=== PATIENT | male | born 1990 | race Caucasian/White ===

== ENCOUNTER 2017-03-30 20:36 | Inpatient (IN) | payer OTHER ==
[2017-03-30] MEDS ORDERED: NORMAL SALINE 1000 ML 1,000 ML IV ONE (23:13)
--- NOTE | 2017-03-30 23:18 | ER Document Report ---
ED General - General Chief Complaint: Muscle cramps, heat exposure Stated Complaint: POSSIBLE MUSCLE CRAMPS Time Seen by Provider: 03/30/17 23:02 Notes: 36 year male presents with generalized muscle cramping guarding extremities and abdominal muscles on the setting of dehydration. Constant and worsening. 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 No dark urine no low back pain no loss of consciousness. TRAVEL OUTSIDE OF THE [place] IN LAST 30 DAYS: No - Related Data Allergies/Adverse Reactions: No Known Allergies Allergy (Verified 01/23/16 17:41) Past Medical History - General Information source: Patient - Social History Smoking Status: Current Every Day Smoker Family History: Reviewed & Not Pertinent Renal/ Medical History: Denies: Hx Peritoneal Dialysis Psychiatric Medical History: Reports: Hx Attention Deficit Hyperactivity Disorder, Hx Bipolar Disorder Past Surgical History: Reports: Hx Tonsillectomy - Immunizations Immunizations up to date: Yes Hx Diphtheria, Pertussis, Tetanus Vaccination: No Review of Systems - Review of Systems Notes: REVIEW OF SYSTEMS GEN: Denies fever, chills, weight loss ENT: Denies sore throat, nasal discharge, ear pain EYES: Denies blurry vision, eye pain, discharge CV: Denies chest pain, palpitations, edema RESP: Denies cough, shortness of breath, wheezing GI: Denies abdominal pain, nausea, vomiting, diarrhea MSK: Pain, SKIN: Denies rash, skin lesions LYMPH: Denies swollen glands/lymph nodes NEURO: Denies headache, focal weakness or numbness, dizziness PSYCH: Denies depression, suicidal or homicidal ideation PHYSICAL EXAMINATION General: No acute distress, well-nourished Head: Atraumatic, normocephalic ENT: Mouth normal, oropharynx moist, no exudates or tonsillar enlargement Eyes: Conjunctiva normal, pupils equal, lids normal Neck: No JVD, supple, no guarding CVS: Normal rate, regular rhythm, no murmurs Resp: No resp distress, equal and normal breath sounds bilaterally GI: Nondistended, soft, no tenderness to palpation, no rebound or guarding Ext: No deformities, no edema, normal range of motion in upper and lower ext Back: No CVA or midline TTP Skin: No rash, warm Lymphatic: No lymphadeopathy noted Neuro: Awake, alert. Face symmetric. GCS 15. Physical Exam - Vital signs Vitals: Temp Pulse Resp BP Pulse Ox 97.6 F 91 16 127/93 H 99 03/30/17 20:51 03/30/17 20:51 03/30/17 20:51 03/30/17 20:51 03/30/17 20:51 Course - Re-evaluation Re-evalutation: 03/30/17 23:17 Muscle cramps without tenderness, and obvious dehydration in the setting of working in the heat. Differential includes he cramps electrode abnormalities dehydration and/or rhabdomyolysis. Will get labs and hydrate patient. 03/31/17 00:38 Patient is receiving fluids and feeling slightly better. His laboratory testing shows multiple abnormalities including likely acute kidney injury with a creatinine of 2.25 mildly elevated potassium, hyperkalemia and hemoconcentration on his CBC was elevated white count and hemoglobin. I will give him medications for hyperkalemia, see medication list, finish his current IV fluid bolus and put him on maintenance fluids. He will be admitted to the hospital. 03/31/17 00:[address] Jiang who admitted the patient. Agree with treatment plan as outlined. - Vital Signs Vital signs: Temp Pulse Resp BP Pulse Ox 97.6 F 91 16 127/93 H 99 03/30/17 20:51 03/30/17 20:51 03/30/17 20:51 03/30/17 20:51 03/30/17 20:51 - Laboratory Result Diagrams: 03/30/17 23:25 03/30/17 23:25 Laboratory results interpreted by me: 03/30/17 03/30/17 23:25 23:25 WBC 23.7 H RBC 5.60 H Hgb 17.6 H Seg Neuts % (Manual) 88 H Lymphocytes % (Manual) 7 L Abs Neuts (Manual) 20.9 H Potassium 5.4 H Chloride 96 L Carbon Dioxide 21 L Anion Gap 21 H Creatinine 2.26 H Est GFR ( Amer) 42 L Est GFR (Non-Af Amer) 35 L Calcium 12.2 H* Creatine Kinase 564 H - EKG Interpretation by Me EKG shows normal: Sinus rhythm - Little change in morphology of the T waves compared to prior with no definite peaking or hyper acuity. Discharge - Discharge Clinical Impression: Dehydration, Acute kidney injury Condition: Fair Disposition: ADMITTED INPATIENT Admitting Provider: Hospitalist Unit Admitted: Telemetry
[2017-03-30 23:44] LABS: HEMATOCRIT 50.1 % (37.9-51.0); HEMOGLOBIN 17.6 g/dL (13.5-17.0); HGB HCT DIFFERENCE 2.7; MEAN CORPUSCULAR HEMOGLOBIN 31.4 pg (27.0-33.4); MEAN CORPUSCULAR HGB CONC 35.1 g/dL (32.0-36.0); MEAN CORPUSCULAR VOLUME 90 fl (80-97); RED CELL DISTRIBUTION WIDTH 12.9 % (11.5-14.0); WHITE BLOOD COUNT 23.7 10^3/uL (4.0-10.5)
[2017-03-30 23:52] LABS: BLOOD UREA NITROGEN 19 mg/dL (7-20); CARBON DIOXIDE 21 mmol/L (22-30); CREATINE KINASE 564 U/L (55-170); CREATININE RESULT 2.26 mg/dL (0.52-1.25); GLUCOSE 100 mg/dL (75-110); POTASSIUM 5.4 mmol/L (3.6-5.0)
[2017-03-30 23:59] LABS: BASOPHILS % (MANUAL) 0 % (0-2); EOSINOPHILS % (MANUAL) 0 % (0-6); LYMPHOCYTES % (MANUAL) 7 % (13-45); TOTAL CELLS COUNTED 100
[2017-03-31 00:02] LABS: RBC MORPHOLOGY COMMENT NORMO-CYTIC/CHROMIC
[2017-03-31 00:11] LABS: CHLORIDE 96 mmol/L (98-107); SODIUM 137.6 mmol/L (137-145)
[2017-03-31] MEDS ORDERED: RINGERS SOLUTION,LACTATED 1,000 ML IV ONE (00:13)
[2017-03-31 00:14] LABS: ANION GAP 21 (5-19)
[2017-03-31 00:17] LABS: CALCIUM 12.2 mg/dL (8.4-10.2)
[2017-03-31] MEDS ORDERED: ALBUTEROL SULFATE 0.083% NEB 2.5 MG/3 ML AMPUL NEB ONE (00:35)
[2017-03-31] MEDS ORDERED: INSULIN REG, HUMAN 100 UNIT/ML 3 ML VIAL (PYX) IV ONE (00:35)
[2017-03-31] MEDS ORDERED: SODIUM BICARBONATE 4.2% INJ (2.4 MEQ/5 ML) VIAL INJ ONE (00:35)
[2017-03-31] MEDS ORDERED: DEXTROSE 50%-WATER 25 GM/50 ML DISP.SYRIN IV ONE (00:35)
[2017-03-31] MEDS ORDERED: DEXTROSE 5%-1/2 NORMAL SALINE 1,000 ML IV ONE (00:36)
[2017-03-31] MEDS ORDERED: IPRATROPIUM/ALBUTEROL 0.5-2.5 MG/3 ML AMPUL NEB PRN (00:57)
[2017-03-31] MEDS ORDERED: PROMETHAZINE HCL 25 MG TABLET PO PRN (00:57)
[2017-03-31] MEDS ORDERED: NORMAL SALINE 1000 ML 1,000 ML IV SCH (01:00)
[2017-03-31] MEDS ORDERED: SODIUM BICARBONATE 8.4% INJ 50 MEQ/50 ML DISP.SYRIN ONE (01:10)
[2017-03-31] MEDS ORDERED: SODIUM BICARBONATE 8.4% INJ 50 MEQ/50 ML DISP.SYRIN IV ONE (01:11)
[2017-03-31 01:32] LABS: ALANINE AMINOTRANSFERASE 94 U/L (21-72); ALKALINE PHOSPHATASE 94 U/L (38-126); ASPARTATE AMINO TRANSFERASE 52 U/L (17-59); BILIRUBIN,DIRECT 0.7 mg/dL (0.0-0.4); BILIRUBIN,TOTAL 2.3 mg/dL (0.2-1.3); MAGNESIUM 2.5 mg/dL (1.6-2.3); PHOSPHORUS 5.1 mg/dL (2.5-4.5); TOTAL PROTEIN 10.4 g/dL (6.3-8.2)
[2017-03-31 01:54] LABS: ALBUMIN 6.3 g/dL (3.5-5.0)
[2017-03-31] MEDS: ACETAMINOPHEN 325 MG TABLET PO PRN (02:46)
[2017-03-31 02:54] LABS: URINE BARBITURATES SCREEN NEGATIVE; URINE METHADONE SCREEN NEGATIVE; URINE OPIATES LOW NEGATIVE; URINE PHENCYCLIDINE SCREEN NEGATIVE
--- NOTE | 2017-03-31 04:32 | PDOC H&P ---
History of Present Illness Admission Date/PCP: 03/31/17 00:57 Patient complains of: Diffuse muscle pain History of Present Illness: PRAVEEN NICHOLS is a 26 year old male without significant past medical history is been in his usual state of health until 4 hours prior to presentation complaining of headache nausea vomiting of gastric content, diffuse muscle pain and oliguria. 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 Denies previous episode, fever photophobia or neck rigidity. In the emergency room he found to have leukocytosis, severe dehydration, acute renal failure, hyperkalemia, hypercalcemia and rhabdomyolysis he is referred to the hospitalist for admission. Patient denies any prescribed or [id number] medication use. Past Medical History Medical History: None Psychiatric Medical History: Reports: Attention Deficit Hyperactivity Disorder, Bipolar Disorder Past Surgical History Past Surgical History: Reports: Tonsillectomy Social History Information Source: Patient Smoking Status: Former Smoker Frequency of Alcohol Use: None Hx Recreational Drug Use: Yes Drugs: Marijuana Hx Prescription Drug Abuse: No - Advance Directive Resuscitation Status: Full Code Family History Family History: Hypertension Parental Family History Reviewed: Yes Children Family History Reviewed: Yes Sibling(s) Family History Reviewed.: Yes Medication/Allergy Home Medications: Cyclobenzaprine HCl [Flexeril 10 mg Tablet] 10 mg PO TIDP PRN #15 tab 12/28/15 Docusate Sodium [Colace 100 mg Capsule] 100 mg PO DAILY #30 capsule 12/28/15 Hydrocortisone Acetate [Hemmorex-Hc] 25 mg RC BID #24 supp.rect 12/28/15 Oxycodone HCl/Acetaminophen [Percocet 5-325 mg Tablet] 1 - 2 tab PO Q4H PRN #15 tablet 01/23/16 Allergies/Adverse Reactions: No Known Allergies Allergy (Verified 01/23/16 17:41) Review of Systems Constitutional: ABSENT: chills, fever(s), headache(s), weight gain, weight loss Eyes: ABSENT: visual disturbances Ears: ABSENT: hearing changes Cardiovascular: ABSENT: chest pain, dyspnea on exertion, edema, orthropnea, palpitations Respiratory: ABSENT: cough, hemoptysis Gastrointestinal: ABSENT: abdominal pain, constipation, diarrhea, hematemesis, hematochezia, nausea, vomiting Genitourinary: ABSENT: dysuria, hematuria Musculoskeletal: ABSENT: joint swelling Integumentary: ABSENT: rash, wounds Neurological: ABSENT: abnormal gait, abnormal speech, confusion, dizziness, focal weakness, syncope Psychiatric: ABSENT: anxiety, depression, homidical ideation, suicidal ideation Endocrine: ABSENT: cold intolerance, heat intolerance, polydipsia, polyuria Hematologic/Lymphatic: ABSENT: easy bleeding, easy bruising Physical Exam Vital Signs: Temp Pulse Resp BP Pulse Ox 97.6 F 91 16 127/93 H 99 03/30/17 20:51 03/30/17 20:51 03/30/17 20:51 03/30/17 20:51 03/30/17 20:51 General appearance: PRESENT: no acute distress, well-developed, well-nourished, other - Sunburn Head exam: PRESENT: atraumatic, normocephalic Eye exam: PRESENT: conjunctiva pink, EOMI, PERRLA. ABSENT: scleral icterus Ear exam: PRESENT: normal external ear exam Mouth exam: PRESENT: moist, tongue midline Neck exam: ABSENT: carotid bruit, JVD, lymphadenopathy, thyromegaly Respiratory exam: PRESENT: clear to auscultation florencia. ABSENT: rales, rhonchi, wheezes Cardiovascular exam: PRESENT: RRR. ABSENT: diastolic murmur, rubs, systolic murmur Pulses: PRESENT: normal dorsalis pedis pul Vascular exam: PRESENT: normal capillary refill GI/Abdominal exam: PRESENT: normal bowel sounds, soft. ABSENT: distended, guarding, mass, organolmegaly, rebound, tenderness Rectal exam: PRESENT: deferred Extremities exam: PRESENT: full ROM. ABSENT: calf tenderness, clubbing, pedal edema Neurological exam: PRESENT: alert, awake, oriented to person, oriented to place , oriented to time, oriented to situation, CN II-XII grossly intact. ABSENT: motor sensory deficit Psychiatric exam: PRESENT: appropriate affect, normal mood. ABSENT: homicidal ideation, suicidal ideation Skin exam: PRESENT: dry, intact, warm. ABSENT: cyanosis, rash Assessment & Plan - Diagnosis (1) Acute kidney injury Is this a current diagnosis for this admission?: YesPlan: Secondary to prolonged heat exposure with suboptimal fluid intake, dehydration. And rhabdomyolysis. Follow-up chemistry and total CK avoiding nephrotoxic meds and doses UA pending (2) Leukocytosis Is this a current diagnosis for this admission?: YesPlan: Likely demargination secondary to heat exhaustion as he gives no focal complaints of pain and inflammation. Reevaluate CBC (3) Hyperkalemia Is this a current diagnosis for this admission?: YesPlan: Secondary to rhabdomyolysis IV fluid hydration and reevaluation (4) Hypercalcemia Is this a current diagnosis for this admission?: YesPlan: Secondary to severe dehydration, IV fluid challenge and reevaluation of chemistry (5) Dehydration Is this a current diagnosis for this admission?: YesPlan: IV fluid challenge and education - Time Time Spent: 30 to 50 Minutes - Inpatient Certification Medical Necessity: Need Close Monitoring Due to Risk of Patient Decompensation
[2017-03-31 05:10] LABS: ANION GAP 16 (5-19); BLOOD UREA NITROGEN 17 mg/dL (7-20); CALCIUM 10.3 mg/dL (8.4-10.2); CARBON DIOXIDE 25 mmol/L (22-30); CHLORIDE 100 mmol/L (98-107); CREATININE RESULT 1.26 mg/dL (0.52-1.25); GLUCOSE 98 mg/dL (75-110); SODIUM 140.5 mmol/L (137-145)
[2017-03-31] MEDS: HEPARIN SOD (PORCINE) 5,000 UNIT/ML 1 ML SYRINGE SUBCUT SCH ×3 (05:18→22:17)
[2017-03-31 05:21] LABS: POTASSIUM 3.8 mmol/L (3.6-5.0)
--- NOTE | 2017-03-31 07:50 | EKG REPORT ---
SEVERITY:- BORDERLINE ECG - SINUS RHYTHM NONSPECIFIC ST-T CHANGES- INFERIOR LEADS : Confirmed by: Gareth Grubbs MD 31-Mar-2017 07:50:07
[2017-03-31] MEDS: DOCUSATE SODIUM 100 MG CAPSULE PO SCH ×2 (10:08→18:16)
[2017-03-31 11:31] LABS: ANION GAP 15 (5-19); BLOOD UREA NITROGEN 16 mg/dL (7-20); CALCIUM 9.6 mg/dL (8.4-10.2); CARBON DIOXIDE 25 mmol/L (22-30); CHLORIDE 100 mmol/L (98-107); CREATININE RESULT 0.83 mg/dL (0.52-1.25); GLUCOSE 92 mg/dL (75-110); POTASSIUM 3.8 mmol/L (3.6-5.0); SODIUM 140.1 mmol/L (137-145)
[2017-03-31 11:42] LABS: CREATINE KINASE 2898 U/L (55-170)
[2017-03-31 22:23] LABS: ANION GAP 11 (5-19); BLOOD UREA NITROGEN 14 mg/dL (7-20); CALCIUM 9.4 mg/dL (8.4-10.2); CARBON DIOXIDE 27 mmol/L (22-30); CHLORIDE 106 mmol/L (98-107); CREATININE RESULT 0.89 mg/dL (0.52-1.25); GLUCOSE 99 mg/dL (75-110); SODIUM 143.8 mmol/L (137-145)
[2017-03-31 22:53] LABS: CREATINE KINASE 4894 U/L (55-170)
[2017-03-31 23:01] LABS: POTASSIUM 5.2 mmol/L (3.6-5.0)
[2017-04-01 04:52] LABS: ABSOLUTE BASOPHILS # (AUTO) 0.1 10^3/uL (0.0-0.2); ABSOLUTE EOSINOPHILS # (AUTO) 0.1 10^3/uL (0.0-0.6); ABSOLUTE LYMPHOCYTES (AUTO) 3.8 10^3/uL (0.5-4.7); ABSOLUTE MONOCYTES (AUTO) 1.2 10^3/uL (0.1-1.4); ABSOLUTE NEUT (AUTO) 5.7 10^3/uL (1.7-8.2); BASOPHILS % (AUTO) 0.5 % (0-2); EOSINOPHILS % (AUTO) 0.9 % (0-6); HEMATOCRIT 40.4 % (37.9-51.0); HGB HCT DIFFERENCE 1.9; LYMPHOCYTES % (AUTO) 35.3 % (13-45); MEAN CORPUSCULAR HEMOGLOBIN 31.7 pg (27.0-33.4); MEAN CORPUSCULAR VOLUME 91 fl (80-97); MONOCYTES % (AUTO) 10.8 % (3-13); RED BLOOD COUNT 4.46 10^6/uL (4.35-5.55); RED CELL DISTRIBUTION WIDTH 13.2 % (11.5-14.0); SEGMENTED NEUTROPHILS % (AUTO) 52.5 % (42-78); WHITE BLOOD COUNT 10.9 10^3/uL (4.0-10.5)
[2017-04-01 05:03] LABS: HEMOGLOBIN 14.1 g/dL (13.5-17.0)
[2017-04-01] MEDS: HEPARIN SOD (PORCINE) 5,000 UNIT/ML 1 ML SYRINGE SUBCUT SCH (06:34)
[2017-04-01 08:18] VITALS: BP 118/57
[2017-04-01] MEDS ORDERED: IBUPROFEN 800 MG TABLET PO PRN (09:05)
[2017-04-01] MEDS: ACETAMINOPHEN 325 MG TABLET PO PRN (09:17)
[2017-04-01] MEDS: DOCUSATE SODIUM 100 MG CAPSULE PO SCH (09:17)
[2017-04-01 09:54] LABS: ANION GAP 11 (5-19); BLOOD UREA NITROGEN 10 mg/dL (7-20); CALCIUM 9.7 mg/dL (8.4-10.2); CARBON DIOXIDE 26 mmol/L (22-30); CHLORIDE 105 mmol/L (98-107); CREATININE RESULT 0.76 mg/dL (0.52-1.25); GLUCOSE 89 mg/dL (75-110); POTASSIUM 4.9 mmol/L (3.6-5.0); SODIUM 141.6 mmol/L (137-145)
[2017-04-01 10:33] LABS: CREATINE KINASE 4057 U/L (55-170)
[2017-04-01] MEDS ORDERED: ACETAMINOPHEN 325 MG TABLET PO PRN (10:49)
[2017-04-01] MEDS ORDERED: PROMETHAZINE HCL 25 MG TABLET PO PRN (10:51)
--- NOTE | 2017-04-01 14:42 | PDOC DISCHARGE SUMMARY ---
General - Admit/Disc Date/PCP Admission Date/Primary Care Provider: 03/31/17 00:57 Discharge Date: 04/01/17 - Discharge Diagnosis (1) Rhabdomyolysis Is this a current diagnosis for this admission?: YesSummary: Improved with hydration (2) Acute kidney injury Is this a current diagnosis for this admission?: Yes (3) Dehydration Is this a current diagnosis for this admission?: Yes (4) Hypercalcemia Is this a current diagnosis for this admission?: Yes (5) Hyperkalemia Is this a current diagnosis for this admission?: YesSummary: Resolved with hydration (6) Leukocytosis Is this a current diagnosis for this admission?: Yes - Additional Information Resuscitation Status: Full Code Discharge Diet: Regular Discharge Activity: Activity As Tolerated, Balance Activity w/Rest, Other Home Medications: Acetaminophen [Tylenol 325 mg Tablet] 650 mg PO Q4HP PRN tablet 04/01/17 Ibuprofen [Motrin 800 mg Tablet] 800 mg PO Q8HP PRN tablet 04/01/17 History of Present Illness Patient complains of: Diffuse muscle spasms and weakness History of Present Illness: PRAVEEN NICHOLS is a 26 year old male without significant past medical history is been in his usual state of health until 4 hours prior to presentation complaining of headache nausea vomiting of gastric content, diffuse muscle pain and oliguria. 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 Denies previous episode, fever photophobia or neck rigidity. In the emergency room he found to have leukocytosis, severe dehydration, acute renal failure, hyperkalemia, hypercalcemia and rhabdomyolysis he is referred to the hospitalist for admission. Patient denies any prescribed or [id number] medication use. Hospital Course Hospital Course: Patient was admitted to the telemetry unit. He was agressively rehydrated with IV fluids. His electrolytes quickly recorrected. His acute kidney injury resolved. He was able to tolerate a regular diet. He is feeling much improved and ready for discharge Physical Exam Vital Signs: Temp Pulse Resp BP Pulse Ox 98.2 F 72 18 118/57 L 99 04/01/17 10:20 04/01/17 10:20 04/01/17 10:20 04/01/17 10:20 04/01/17 10:20 Intake & Output 03/31/17 04/01/17 04/02/17 06:59 06:59 06:59 Intake Total 900 5502 Output Total 3030 Balance 900 2472 Weight 96.3 kg 96.3 kg 96.3 kg General appearance: PRESENT: no acute distress, well-developed, well-nourished Head exam: PRESENT: atraumatic, normocephalic Eye exam: PRESENT: conjunctiva pink, EOMI, PERRLA. ABSENT: scleral icterus Ear exam: PRESENT: normal external ear exam Mouth exam: PRESENT: moist, tongue midline Neck exam: ABSENT: carotid bruit, JVD, lymphadenopathy, thyromegaly Respiratory exam: PRESENT: clear to auscultation florencia. ABSENT: rales, rhonchi, wheezes Cardiovascular exam: PRESENT: RRR. ABSENT: diastolic murmur, rubs, systolic murmur Pulses: PRESENT: normal dorsalis pedis pul Vascular exam: PRESENT: normal capillary refill GI/Abdominal exam: PRESENT: normal bowel sounds, soft. ABSENT: distended, guarding, mass, organolmegaly, rebound, tenderness Rectal exam: PRESENT: deferred Extremities exam: PRESENT: full ROM. ABSENT: calf tenderness, clubbing, pedal edema Neurological exam: PRESENT: alert, awake, oriented to person, oriented to place , oriented to time, oriented to situation, CN II-XII grossly intact. ABSENT: motor sensory deficit Psychiatric exam: PRESENT: appropriate affect, normal mood. ABSENT: homicidal ideation, suicidal ideation Skin exam: PRESENT: dry, intact, warm. ABSENT: cyanosis, rash Results Laboratory Results: 04/01/17 03:54 04/01/17 09:30 03/31/17 04/01/17 04/01/17 21:55 03:54 09:30 WBC 10.9 H RBC 4.46 Hgb 14.1 D Hct 40.4 MCV 91 MCH 31.7 MCHC 35.0 RDW 13.2 Plt Count 207 Seg Neutrophils % 52.5 Lymphocytes % 35.3 Monocytes % 10.8 Eosinophils % 0.9 Basophils % 0.5 Absolute Neutrophils 5.7 Absolute Lymphocytes 3.8 Absolute Monocytes 1.2 Absolute Eosinophils 0.1 Absolute Basophils 0.1 Sodium 143.8 141.6 Potassium 5.2 H D 4.9 Chloride 106 105 Carbon Dioxide 27 26 Anion Gap 11 11 BUN 14 10 Creatinine 0.89 0.76 Est GFR ( Amer) > 60 > 60 Est GFR (Non-Af Amer) > 60 > 60 Glucose 99 89 Calcium 9.4 9.7 03/31/17 03/31/17 04/01/17 10:54 21:55 09:30 Creatine Kinase 2898 H 4894 H 4057 H Qualifiers PATEINT BEING DISCHARGED WITH ANY OF THE FOLLOWING DIAGNOSIS?: No Plan Discharge Plan: Home Time Spent: Less than 30 Minutes
== END 2017-04-01 10:50 | disposition home or self-care (01) | DRG 683 ==
LOC: ER 20:36 → EH 03-31 00:57 → 4N 03-31 03:19
PROVIDERS: ADMIT Internal Medicine; ATTEND Internal Medicine
DX: N17.9 Acute kidney failure, unspecified (principal); M62.82 Rhabdomyolysis; E86.0 Dehydration; D72.828 Other elevated white blood cell count; E87.5 Hyperkalemia; E83.52 Hypercalcemia; F90.9 Attention-deficit hyperactivity disorder, unspecified type; F31.9 Bipolar disorder, unspecified; Z87.891 Personal history of nicotine dependence; Z82.49 Family history of ischemic heart disease and other diseases of the circulatory system
CPT/HCPCS: 36415; 80048; 80076; 80307; 82550; 83735; 84100; 84443; 85025; 93005; 93010; 99285; J1644; J1815; J3490; J7030; J7120

== ENCOUNTER 2017-04-14 12:04 | Emergency (ER) | payer SELFPAY ==
--- NOTE | 2017-04-14 12:46 | ER Document Report ---
ED Extremity Problem, Upper - General Chief Complaint: Shoulder Injury Stated Complaint: FALL/RIGHT SHOULDER PAIN Time Seen by Provider: 04/14/17 12:31 Mode of Arrival: Ambulatory Information source: Patient Notes: 26-year-old male presents to ED for pain in his right shoulder after he fell off of a skateboard just prior to arrival. TRAVEL OUTSIDE OF THE [place] IN LAST 30 DAYS: No - HPI Patient complains to provider of: Right, Clavicle, Shoulder Onset: Just prior to arrival Recent injury: Yes Where: Outdoors, Public place Quality of pain: Sharp, Throbbing Severity of pain: Severe Pain Level: 5 Context: Fall Associated symptoms: None Exacerbated by: Movement, Exertion Relieved by: Rest, Positioning Similar symptoms previously: No Recently seen / treated by doctor: Yes - Related Data Allergies/Adverse Reactions: No Known Allergies Allergy (Verified 04/14/17 12:13) Past Medical History - General Information source: Patient - Social History Smoking Status: Former Smoker Cigarette use (# per day): No Chew tobacco use (# tins/day): No Smoking Education Provided: No Frequency of alcohol use: None Drug Abuse: None Lives with: Family Family History: Hypertension Patient has suicidal ideation: No Patient has homicidal ideation: No - Medical History Medical History: Negative - Past Medical History Cardiac Medical History: Reports: None Pulmonary Medical History: Reports: None EENT Medical History: Reports: None Neurological Medical History: Reports: None Endocrine Medical History: Reports: None Renal/ Medical History: Reports: None Malignancy Medical History: Reports None GI Medical History: Reports: None Musculoskeltal Medical History: Reports Hx Musculoskeletal Deformity - Rhabdomyolysis Psychiatric Medical History: Reports: Hx Attention Deficit Hyperactivity Disorder, Hx Bipolar Disorder Traumatic Medical History: Reports: None Infectious Medical History: Reports: None Past Surgical History: Reports: Hx Tonsillectomy - Immunizations Immunizations up to date: Yes Hx Diphtheria, Pertussis, Tetanus Vaccination: No Review of Systems - Review of Systems Constitutional: No symptoms reported EENT: No symptoms reported Cardiovascular: No symptoms reported Respiratory: No symptoms reported Gastrointestinal: No symptoms reported Genitourinary: No symptoms reported Male Genitourinary: No symptoms reported Musculoskeletal: Joint pain - Right shoulder and clavicle tenderness, Joint swelling, Muscle pain Skin: No symptoms reported Hematologic/Lymphatic: No symptoms reported Neurological/Psychological: No symptoms reported -: Yes All other systems reviewed and negative Physical Exam - Vital signs Vitals: Temp Pulse Resp BP Pulse Ox 97.7 F 70 16 155/86 H 100 04/14/17 12:06 04/14/17 12:06 04/14/17 12:06 04/14/17 12:06 04/14/17 12:06 Interpretation: Normal - General General appearance: Appears well, Alert - HEENT Head: Normocephalic, Atraumatic Eyes: Normal Pupils: PERRL - Respiratory Respiratory status: No respiratory distress Chest status: Nontender Breath sounds: Normal Chest palpation: Normal - Cardiovascular Rhythm: Regular Heart sounds: Normal auscultation Murmur: No - Abdominal Inspection: Normal Distension: No distension Bowel sounds: Normal Tenderness: Nontender Organomegaly: No organomegaly - Back Back: Normal, Nontender - Extremities General upper extremity: Normal color, Normal temperature General lower extremity: Normal inspection, Nontender, Normal color, Normal ROM , Normal temperature, Normal weight bearing. No: Rebekah's sign Shoulder: Tender, Limited ROM, Other - Tenderness to the clavicle and scapula - Neurological Neuro grossly intact: Yes Cognition: Normal Orientation: AAOx4 [place] Coma Scale Eye Opening: Spontaneous [place] Coma Scale Verbal: Oriented [place] Coma Scale Motor: Obeys Commands [place] Coma Scale Total: 15 Speech: Normal Motor strength normal: LUE, RUE, LLE, RLE Sensory: Normal - Psychological Associated symptoms: Normal affect, Normal mood - Skin Skin Temperature: Warm Skin Moisture: Dry Skin Color: Normal Course - Re-evaluation Re-evalutation: 04/14/17 17:43 Patient was treated with Toradol a sling applied he was given instructions on shoulder exercises and ice and use of sling. Patient instructed to follow-up with orthopedics. - Vital Signs Vital signs: Temp Pulse Resp BP Pulse Ox 97.5 F 88 16 151/89 H 98 04/14/17 13:38 04/14/17 13:38 04/14/17 13:38 04/14/17 13:38 04/14/17 13:38 - Diagnostic Test Radiology reviewed: Image reviewed, Reports reviewed Discharge - Discharge Clinical Impression: Right shoulder injury Qualifiers: Encounter type: initial encounter Qualified Code(s): S49.91XA - Unspecified injury of right shoulder and upper arm, initial encounter Condition: Stable Disposition: HOME, SELF-CARE Additional Instructions: Shoulder Injury You have injured your shoulder. This usually results from stretching or tearing of the tendons during trauma. Time and protection are required in order to heal properly. Many injuries are quite disabling, and should be taken seriously. Initial treatment includes cold packs and a sling to rest the shoulder. The physician has assessed the seriousness of your injury, and has outlined a treatment plan. Understand that this treatment may change, depending on how you progress. If a re-examination was recommended, it is important that you follow up as instructed. Some shoulder injuries (such as partial tear of the rotator cuff) are only suspected after you've failed to improve. Call us if there's severe pain, numbness, or loss of function. Toradol Injection You have been given an injection of ketorolac tromethamine (Toradol). This is an excellent, safe drug for pain control. It also has potent antiinflammatory action. You should have significant pain relief within about one hour. Toradol is not addicting and is non-sedating. It does not interfere with driving or work. Call or return if you develop itching, hives, shortness of breath, or rash. Sling as Treatment A sling has been applied to protect the injury. This is adequate immobilization for this type of injury -- no cast or brace is required. Keep the sling on at all times until instructed to remove it by the doctor. Even though no cast or splint is needed, you must use the sling. If you use the arm too soon, it may not heal properly! If necessary, the sling can be adjusted for comfort. Return if you are encountering problems with the sling. Oral Narcotic Medication You have been given a Cass Art dispense pack for pain control. This medication is a narcotic. It's best taken with food, as nausea can result if taken on an empty stomach. Don't operate machinery or drive within six hours of taking this medication. Do not combine this medicine with alcohol, or with any medication which can cause sedation (such as cold tablets or sleeping pills) unless you get permission from the physician. Narcotics tend to cause constipation. If possible, drink plenty of fluids and eat a diet high in fiber and fruits. FOLLOW-UP CARE: If you have been referred to a physician for follow-up care, call the physician s office for an appointment as you were instructed or within the next two days. If you experience worsening or a significant change in your symptoms, notify the physician immediately or return to the Emergency Department at any time for re-evaluation. Forms: Elevated Blood Pressure, Smoking Cessation Education, Return to Work Referrals: MARTIN CHILDERS MD [ACTIVE STAFF] - Follow up as needed
[2017-04-14] MEDS ORDERED: KETOROLAC TROMETHAMINE 60 MG/2 ML SDV IM ONE (13:02)
--- NOTE | 2017-04-14 13:16 | RADIOLOGY REPORT (SQ) ---
EXAM DESCRIPTION: SHOULDER RIGHT 2 OR MORE VIEWS COMPLETED DATE/TIME: 04/14/2017 12:59 pm REASON FOR STUDY: fall right shoulder pain COMPARISON: None. NUMBER OF VIEWS: Three views. TECHNIQUE: Internal rotation, external rotation, and Y view images acquired of the right shoulder. LIMITATIONS: None. FINDINGS: MINERALIZATION: Normal. BONES: No acute fracture or dislocation. No worrisome bone lesions. JOINTS: The distal clavicle is elevated in relation to the acromion. VISUALIZED LUNGS AND RIBS: No pneumothorax. No rib fracture. SOFT TISSUES: No radiopaque foreign body. OTHER: No other significant finding. IMPRESSION: Likely AC separation. No acute abnormality is seen in the glenohumeral joint. TECHNICAL DOCUMENTATION: JOB ID: [id number] [employer]- All Rights Reserved
[2017-04-14] MEDS ORDERED: HYDROCODONE/ACETAMINOPHEN 5-325 MG 6 TAB/DSPK PO PRN (13:21)
[2017-04-14 13:45] VITALS: BP 151/89
== END 2017-04-14 13:46 | disposition home or self-care (01) ==
LOC: ER 12:04
DX: S49.91XA Unspecified injury of right shoulder and upper arm, initial encounter (principal); V00.131A Fall from skateboard, initial encounter; Y93.51 Activity, roller skating (inline) and skateboarding
CPT/HCPCS: 99283

== ENCOUNTER 2017-06-14 06:50 | Emergency (ER) | payer SELFPAY ==
[2017-06-14 06:57] VITALS: BP 144/76
[2017-06-14 07:39] LABS: ABSOLUTE BASOPHILS # (AUTO) 0.1 10^3/uL (0.0-0.2); ABSOLUTE EOSINOPHILS # (AUTO) 0.1 10^3/uL (0.0-0.6); ABSOLUTE MONOCYTES (AUTO) 0.8 10^3/uL (0.1-1.4); ABSOLUTE NEUT (AUTO) 4.9 10^3/uL (1.7-8.2); BASOPHILS % (AUTO) 0.6 % (0-2); EOSINOPHILS % (AUTO) 0.6 % (0-6); HEMATOCRIT 45.5 % (37.9-51.0); HEMOGLOBIN 15.9 g/dL (13.5-17.0); HGB HCT DIFFERENCE 2.2; LYMPHOCYTES % (AUTO) 34.3 % (13-45); MEAN CORPUSCULAR HEMOGLOBIN 31.4 pg (27.0-33.4); MEAN CORPUSCULAR HGB CONC 34.8 g/dL (32.0-36.0); MEAN CORPUSCULAR VOLUME 90 fl (80-97); MONOCYTES % (AUTO) 9.2 % (3-13); RED BLOOD COUNT 5.05 10^6/uL (4.35-5.55); RED CELL DISTRIBUTION WIDTH 12.5 % (11.5-14.0); SEGMENTED NEUTROPHILS % (AUTO) 55.3 % (42-78); WHITE BLOOD COUNT 8.8 10^3/uL (4.0-10.5)
[2017-06-14 08:00] LABS: ALANINE AMINOTRANSFERASE 45 U/L (21-72); ALBUMIN 5.1 g/dL (3.5-5.0); ALKALINE PHOSPHATASE 71 U/L (38-126); ANION GAP 16 (5-19); ASPARTATE AMINO TRANSFERASE 25 U/L (17-59); BILIRUBIN,TOTAL 1.7 mg/dL (0.2-1.3); BLOOD UREA NITROGEN 9 mg/dL (7-20); CALCIUM 10.5 mg/dL (8.4-10.2); CARBON DIOXIDE 21 mmol/L (22-30); CHLORIDE 108 mmol/L (98-107); CREATININE RESULT 0.76 mg/dL (0.52-1.25); GLUCOSE 95 mg/dL (75-110); POTASSIUM 4.1 mmol/L (3.6-5.0); SODIUM 144.5 mmol/L (137-145); TOTAL PROTEIN 7.9 g/dL (6.3-8.2)
--- NOTE | 2017-06-14 08:09 | EKG REPORT ---
SEVERITY:- NORMAL ECG - SINUS RHYTHM : Confirmed by: Spencer Padilla 14-Jun-2017 08:08:54
[2017-06-14 08:40] LABS: BILIRUBIN,DIRECT 0.6 mg/dL (0.0-0.4)
[2017-06-14] MEDS ORDERED: ONDANSETRON ODT 4 MG TAB (6 TAB/DSPK) PO PRN (08:47)
--- NOTE | 2017-06-14 08:48 | ER Document Report ---
ED General - General Chief Complaint: Chest Pain Stated Complaint: CHILLS,BODY ACHES,CHEST DISCOMFORT Time Seen by Provider: 06/14/17 08:05 TRAVEL OUTSIDE OF THE [place] IN LAST 30 DAYS: No - HPI Patient complains to provider of: Body aches nausea vomiting Notes: Patient coming in for evaluation of nausea vomiting body aches and right Achilles tendon pain. States ongoing for the last 4 days ago tenderness pain ongoing for quite a long time states more than 2 weeks. Patient has a sling of his right arm however, evaluation is lying on his stomach has no difficulty using his arm and rolling over to his back. Patient states he has not had anything to eat in the last 4 days patient states he is currently homeless that the local homeless shelters are full. Denies any fevers chills - Related Data Allergies/Adverse Reactions: No Known Allergies Allergy (Verified 06/14/17 09:13) Past Medical History - Social History Smoking Status: Unknown if Ever Smoked Family History: Hypertension Renal/ Medical History: Denies: Hx Peritoneal Dialysis Musculoskeltal Medical History: Reports Hx Musculoskeletal Deformity - Rhabdomyolysis Psychiatric Medical History: Reports: Hx Attention Deficit Hyperactivity Disorder, Hx Bipolar Disorder Past Surgical History: Reports: Hx Tonsillectomy - Immunizations Immunizations up to date: Yes Hx Diphtheria, Pertussis, Tetanus Vaccination: No Review of Systems - Review of Systems Constitutional: No symptoms reported EENT: No symptoms reported Cardiovascular: No symptoms reported Respiratory: No symptoms reported Gastrointestinal: Nausea, Vomiting Genitourinary: No symptoms reported Male Genitourinary: No symptoms reported Musculoskeletal: Other - Achilles tendon pain Skin: No symptoms reported Hematologic/Lymphatic: No symptoms reported Neurological/Psychological: No symptoms reported Physical Exam - Vital signs Vitals: Temp Pulse Resp BP Pulse Ox 97.3 F 79 18 144/76 H 99 06/14/17 06:55 06/14/17 06:55 06/14/17 06:55 06/14/17 06:55 06/14/17 06:55 Interpretation: Normal - General General appearance: Appears well, Alert - HEENT Head: Normocephalic, Atraumatic Eyes: Normal Pupils: PERRL - Respiratory Respiratory status: No respiratory distress Chest status: Nontender Breath sounds: Normal Chest palpation: Normal - Cardiovascular Rhythm: Regular Heart sounds: Normal auscultation Murmur: No - Abdominal Inspection: Normal Distension: No distension Bowel sounds: Normal Tenderness: Nontender Organomegaly: No organomegaly - Back Back: Normal, Nontender - Extremities General upper extremity: Nontender, Normal color, Normal ROM, Normal temperature. No: Normal inspection - Right shoulder in a sling patient has no complaints General lower extremity: Normal inspection, Nontender, Normal color, Normal ROM , Normal temperature, Normal weight bearing, Other - Full range of motion of the Achilles tendon is no pain to dorsi or plantar flexion. Bedside ultrasound was performed showing no destruction of the tendon. No: Rebekah's sign - Neurological Neuro grossly intact: Yes Cognition: Normal Orientation: AAOx4 [place] Coma Scale Eye Opening: Spontaneous [place] Coma Scale Verbal: Oriented [place] Coma Scale Motor: Obeys Commands [place] Coma Scale Total: 15 Speech: Normal Motor strength normal: LUE, RUE, LLE, RLE Sensory: Normal - Psychological Associated symptoms: Normal affect, Normal mood - Skin Skin Temperature: Warm Skin Moisture: Dry Skin Color: Normal Course - Re-evaluation Re-evalutation: 06/14/17 15:05 The patient presents with nausea vomiting without signs of peritonitis or other life-threatening or serious etiology. The patient appears stable for discharge and has been instructed to return immediately if the symptoms worsen in any way , or in 8-12hr if not improved for re-evaluation. The patient has been instructed to return if the symptoms worsen or change in any way. The patient more likely symptoms were viral in nature. Laboratory studies not show any critical pathology. Patient requested multiple times for something to eat or drink. Explained patient that we will be discharging him patient became irate and security escorted patient out of the ER - Vital Signs Vital signs: Temp Pulse Resp BP Pulse Ox 97.3 F 79 18 144/76 H 99 06/14/17 06:55 06/14/17 06:55 06/14/17 06:55 06/14/17 06:55 06/14/17 06:55 - Laboratory Result Diagrams: 06/14/17 07:28 06/14/17 07:28 Laboratory results interpreted by me: 06/14/17 07:28 Chloride 108 H Carbon Dioxide 21 L Calcium 10.5 H Total Bilirubin 1.7 H Direct Bilirubin 0.6 H Albumin 5.1 H Discharge - Discharge Clinical Impression: Right leg pain N&V (nausea and vomiting) Qualifiers: Vomiting type: unspecified Vomiting Intractability: unspecified Qualified Code( s): R11.2 - Nausea with vomiting, unspecified Condition: Good Disposition: HOME, SELF-CARE Instructions: Vomiting ([facility]) Additional Instructions: Drink plenty of water to stay hydrated. Take medication as prescribed. Return to the ER symptoms worsen. Prescriptions: Metoclopramide HCl [Reglan] 5 mg PO Q6 #20 tablet
== END 2017-06-14 08:59 | disposition home or self-care (01) ==
LOC: ER 06:50
DX: M79.661 Pain in right lower leg (principal); R11.2 Nausea with vomiting, unspecified; Z59.0 Homelessness
CPT/HCPCS: 36415; 80053; 85025; 93005; 93010; 99284

== ENCOUNTER 2017-06-14 09:10 | Emergency (ER) | payer SELFPAY ==
[2017-06-14] MEDS ORDERED: IBUPROFEN 800 MG TABLET PO ONE (09:53)
--- NOTE | 2017-06-14 10:25 | ER Document Report ---
ED General - General Chief Complaint: Shoulder Pain Stated Complaint: SHOULDER PAIN CHEST PAIN Time Seen by Provider: 06/14/17 09:29 Mode of Arrival: Ambulatory Information source: Patient Notes: A 26-year-old male presents to ED for complaint of right shoulder and ankle pain 2 weeks. He was seen here earlier today states that nobody did anything form and they just kicked him out. He has a discharge papers with a prescription and a bottle of Zofran dispense pack at his bedside. He states nobody did any x-rays of her shoulder and ankle which is why he came here. He started demanding food, hygiene products, water, juice, and a medial as soon as I walked into the room. I explained to him that this was an emergency room not a restaurant or a hotel. We discussed what his problem was which was a shoulder and ankle pain. He stated he needed x-rays of his shoulder and ankle. I ordered the x-rays for his shoulder and ankle and him some ibuprofen for his discomfort. He then demanded blankets and more water. He then became very rude to the staff. TRAVEL OUTSIDE OF THE [place] IN LAST 30 DAYS: No - HPI Onset: Other - 2 weeks Onset/Duration: Intermittent Quality of pain: Achy, Sharp Severity: Mild Pain Level: 1 Associated symptoms: Other - Complains of pain to his right shoulder and leg. States he needs some food clothes socks blankets water and juice Exacerbated by: Movement Relieved by: Denies Similar symptoms previously: Yes Recently seen / treated by doctor: Yes - Related Data Allergies/Adverse Reactions: No Known Allergies Allergy (Verified 06/14/17 09:13) Past Medical History - General Information source: Patient - Social History Smoking Status: Former Smoker Cigarette use (# per day): No Chew tobacco use (# tins/day): No Smoking Education Provided: No Frequency of alcohol use: None Drug Abuse: None Lives with: Homeless Family History: Hypertension. denies: Arthritis, CAD, COPD, CVA, Hyperlipidemia , Malignancy, Thyroid Disfunction Patient has suicidal ideation: No Patient has homicidal ideation: No - Past Medical History Cardiac Medical History: Reports: None Pulmonary Medical History: Reports: None EENT Medical History: Reports: None Neurological Medical History: Reports: None Endocrine Medical History: Reports: None Renal/ Medical History: Reports: None Malignancy Medical History: Reports None GI Medical History: Reports: None Musculoskeltal Medical History: Reports Hx Musculoskeletal Deformity - Rhabdomyolysis, Reports Hx Musculoskeletal Trauma Skin Medical History: Reports None Psychiatric Medical History: Reports: Hx Attention Deficit Hyperactivity Disorder, Hx Bipolar Disorder Traumatic Medical History: Reports: None Infectious Medical History: Reports: None Past Surgical History: Reports: Hx Tonsillectomy - Immunizations Immunizations up to date: Yes Hx Diphtheria, Pertussis, Tetanus Vaccination: No Review of Systems - Review of Systems Constitutional: No symptoms reported EENT: No symptoms reported Cardiovascular: No symptoms reported Respiratory: No symptoms reported Gastrointestinal: No symptoms reported Genitourinary: No symptoms reported Male Genitourinary: No symptoms reported Musculoskeletal: Joint pain - Right shoulder and ankle, Muscle pain. denies: Joint swelling, Leg swelling, Ankle swelling Skin: No symptoms reported Hematologic/Lymphatic: No symptoms reported Neurological/Psychological: No symptoms reported -: Yes All other systems reviewed and negative Physical Exam - Vital signs Vitals: Temp Pulse BP Pulse Ox 98.2 F 76 156/91 H 92 06/14/17 09:15 06/14/17 09:15 06/14/17 09:15 06/14/17 09:15 Interpretation: Normal - General General appearance: Appears well, Alert - HEENT Head: Normocephalic, Atraumatic Eyes: Normal Pupils: PERRL - Respiratory Respiratory status: No respiratory distress Chest status: Nontender Breath sounds: Normal Chest palpation: Normal - Cardiovascular Rhythm: Regular Heart sounds: Normal auscultation Murmur: No - Abdominal Inspection: Normal Distension: No distension Bowel sounds: Normal Tenderness: Nontender Organomegaly: No organomegaly - Back Back: Normal, Nontender - Extremities General upper extremity: Normal inspection, Normal color, Normal ROM, Normal temperature General lower extremity: Normal inspection, Normal color, Normal ROM, Normal temperature, Normal weight bearing. No: Rebekah's sign Shoulder: Tender. No: Limited ROM - Right shoulder discomfort Ankle: Tender, Other - Chronic discoloration. No: Abrasion, Deformity, Ecchymosis, Edema, Instability, Limited ROM, Positive Mercado's test, Unable to bear weight - Neurological Neuro grossly intact: Yes Cognition: Normal Orientation: AAOx4 [place] Coma Scale Eye Opening: Spontaneous [place] Coma Scale Verbal: Oriented [place] Coma Scale Motor: Obeys Commands [place] Coma Scale Total: 15 Speech: Normal Motor strength normal: LUE, RUE, LLE, RLE Sensory: Normal - Psychological Associated symptoms: Normal affect, Normal mood - Skin Skin Temperature: Warm Skin Moisture: Dry Skin Color: Normal Course - Re-evaluation Re-evalutation: 06/14/17 19:58 Discussed x-ray with patient and written report given to patient. Patient was discharged home after giving ibuprofen for his pain. Patient was very demanding during his stay here requesting food draining blankets socks repeatedly. He states he is homeless and does not have food and these are things he needs. He also requested shampoo soap toothbrush and toothpaste. A small bag of socks and healthcare products given to him before he was discharged. Patient instructed to follow-up with his primary doctor and orthopedics. - Vital Signs Vital signs: Temp Pulse Resp BP Pulse Ox 98.0 F 70 18 155/80 H 100 06/14/17 11:02 06/14/17 11:02 06/14/17 11:02 06/14/17 11:02 06/14/17 11:02 - Diagnostic Test Radiology reviewed: Image reviewed, Reports reviewed Discharge - Discharge Clinical Impression: Right shoulder pain Qualifiers: Chronicity: unspecified Qualified Code(s): M25.511 - Pain in right shoulder Right ankle pain Qualifiers: Chronicity: unspecified Qualified Code(s): M25.571 - Pain in right ankle and joints of right foot Condition: Stable Disposition: HOME, SELF-CARE Instructions: Ankle Exercise Program ([facility]), Exercises for the Foot Muscles ([facility] ), Exercise Program for the Shoulder ([facility]) Additional Instructions: You were seen today for complaint of right shoulder and ankle pain. The x-ray of your ankle is negative no acute injuries you refused the x-ray of your shoulder. You have full range of motion of your shoulder. Anti-Inflammatory Medication You have received a prescription for an antiinflammatory agent. This is an excellent, safe drug for pain control. In addition, it has potent antiinflammatory effects which are beneficial, especially in the treatment of injuries, arthritis, or tendonitis. It's best to take this medicine with food. Persons with ulcer disease or allergy to aspirin should notify their physician of this before taking this drug. Take the medication exactly as prescribed. Don't take additional doses unless instructed to do so by your doctor. If you develop wheezing, shortness of breath, hives, faintness, stomach pain, vomiting, or dark black stools, return for re-evaluation at once. FOLLOW-UP CARE: If you have been referred to a physician for follow-up care, call the physician s office for an appointment as you were instructed or within the next two days. If you experience worsening or a significant change in your symptoms, notify the physician immediately or return to the Emergency Department at any time for re-evaluation. Forms: Elevated Blood Pressure, Smoking Cessation Education Referrals: AVILA BO DO [ACTIVE STAFF] - Follow up as needed
--- NOTE | 2017-06-14 10:49 | RADIOLOGY REPORT (SQ) ---
EXAM DESCRIPTION: ANKLE RIGHT COMPLETE COMPLETED DATE/TIME: 06/14/2017 10:34 am REASON FOR STUDY: pain and swelling COMPARISON: None. NUMBER OF VIEWS: Three views. TECHNIQUE: AP, lateral, and oblique radiographic images acquired of the right ankle. LIMITATIONS: None. FINDINGS: MINERALIZATION: Normal. BONES: No acute fracture or dislocation. No worrisome bone lesions. JOINTS: No effusions. SOFT TISSUES: No soft tissue swelling. No foreign body. OTHER: No other significant finding. IMPRESSION: NEGATIVE STUDY OF THE RIGHT ANKLE. NO RADIOGRAPHIC EVIDENCE OF ACUTE INJURY. TECHNICAL DOCUMENTATION: JOB ID: [id number] [employer]- All Rights Reserved
[2017-06-14 11:03] VITALS: BP 155/80
== END 2017-06-14 11:03 | disposition home or self-care (01) ==
LOC: ER 09:10
DX: M25.511 Pain in right shoulder (principal); M25.571 Pain in right ankle and joints of right foot; Z87.891 Personal history of nicotine dependence; Z59.0 Homelessness
CPT/HCPCS: 99283

== ENCOUNTER 2017-06-15 06:56 | Emergency (ER) | payer SELFPAY ==
[2017-06-15] MEDS ORDERED: NORMAL SALINE 1000 ML 1,000 ML IV ONE (07:20)
[2017-06-15] MEDS ORDERED: MECLIZINE HCL 25 MG TABLET PO ONE (07:20)
[2017-06-15] MEDS ORDERED: ONDANSETRON HCL INJ/PF 4 MG/2 ML SDV IV ONE (07:20)
--- NOTE | 2017-06-15 07:27 | ER Document Report ---
ED General - General Chief Complaint: Pain All Over Stated Complaint: DIZZY Time Seen by Provider: 06/15/17 07:08 Mode of Arrival: Ambulatory Information source: Patient Notes: Patient presents stating that he feels sick since yesterday. Patient complains of an allover sick feeling but is unable to describe his symptoms. Patient denies any cough, congestion or sore throat. Patient denies any vomiting or diarrhea but does acknowledge some nausea. Patient complains of chronic right Achilles pain but states that this is not what prompted his visit today. Patient states also that he fell off his skateboard a month ago injuring his right shoulder and he needs to get the referral information again as far as who he is to follow-up with. Patient states that he is homeless and is unable to get into the senior care as they are currently full. Patient complains of dizziness in which he says he feels off balance. Patient denies any chest pain or dyspnea. TRAVEL OUTSIDE OF THE [place] IN LAST 30 DAYS: No - HPI Onset: Yesterday Onset/Duration: Gradual Quality of pain: No pain Pain Level: Denies Associated symptoms: Nausea. denies: Body/muscle aches, Chest pain, Chills, Nonproductive cough, Productive cough, Diarrhea, Fever, Vomiting, Rhinnorhea, Shortness of breath, Sore throat, Weakness Exacerbated by: Denies Relieved by: Denies Similar symptoms previously: No Recently seen / treated by doctor: Yes - Related Data Allergies/Adverse Reactions: No Known Allergies Allergy (Verified 06/15/17 07:20) Past Medical History - General Information source: Patient - Social History Smoking Status: Never Smoker Frequency of alcohol use: None Drug Abuse: None Occupation: None Lives with: Homeless Family History: Hypertension. denies: Arthritis, CAD, COPD, CVA, Hyperlipidemia , Malignancy, Thyroid Disfunction Patient has suicidal ideation: No Patient has homicidal ideation: No Renal/ Medical History: Denies: Hx Peritoneal Dialysis Musculoskeltal Medical History: Reports Hx Musculoskeletal Deformity - Rhabdomyolysis, Reports Hx Musculoskeletal Trauma Psychiatric Medical History: Reports: Hx Attention Deficit Hyperactivity Disorder, Hx Bipolar Disorder Past Surgical History: Reports: Hx Tonsillectomy - Immunizations Immunizations up to date: Yes Hx Diphtheria, Pertussis, Tetanus Vaccination: No Review of Systems - Review of Systems Constitutional: Malaise. denies: Chills, Fever, Weakness, Recent illness EENT: No symptoms reported. denies: Nose congestion, Nose discharge, Sinus pressure, Sinus discharge, Throat pain Cardiovascular: Dizziness. denies: Chest pain, Palpitations, Heart racing, Syncope Respiratory: No symptoms reported. denies: Cough, Short of breath Gastrointestinal: No symptoms reported, Nausea. denies: Abdominal pain, Diarrhea, Vomiting Genitourinary: No symptoms reported. denies: Dysuria Male Genitourinary: No symptoms reported Musculoskeletal: Joint pain - Right shoulder joint pain for the past month after a fall, right Achilles pain. denies: Back pain, Muscle pain Skin: No symptoms reported Hematologic/Lymphatic: No symptoms reported Neurological/Psychological: No symptoms reported. denies: Headaches Physical Exam - Vital signs Vitals: Temp Pulse Resp BP Pulse Ox 97.4 F 102 H 16 145/78 H 98 06/15/17 07:03 06/15/17 07:03 06/15/17 07:03 06/15/17 07:03 06/15/17 07:03 - General General appearance: Appears well, Alert In distress: None Notes: Patient with strong malodorous body odor - HEENT Head: Normocephalic Eyes: Normal Pupils: PERRL Ears: Normal External canal: Normal Tympanic membrane: Normal. No: Serous effusion Nasal: Normal Mouth/Lips: Normal Mucous membranes: Normal Pharynx: Normal. No: Erythema, Exudate Neck: Normal, Supple. No: Lymphadenopathy - Respiratory Respiratory status: No respiratory distress Chest status: Nontender Breath sounds: Normal. No: Rales, Rhonchi, Stridor, Wheezing Chest palpation: Normal - Cardiovascular Rhythm: Regular Heart sounds: S1 appreciated, S2 appreciated Murmur: No - Abdominal Inspection: Normal Distension: No distension Bowel sounds: Normal Tenderness: Nontender Organomegaly: No organomegaly - Back Back: Normal, Nontender. No: CVA tenderness - Extremities General upper extremity: Normal inspection, Normal ROM General lower extremity: Normal inspection, Normal ROM Shoulder: Tender - Right shoulder joint. No: Instability, Limited ROM Ankle: Tender - Right Achilles tenderness. No: Limited ROM Foot: Normal, Nontender - Neurological Neuro grossly intact: Yes Cognition: Normal [place] Coma Scale Eye Opening: Spontaneous [place] Coma Scale Verbal: Oriented [place] Coma Scale Motor: Obeys Commands [place] Coma Scale Total: 15 - Psychological Associated symptoms: Normal affect, Normal mood - Skin Skin Temperature: Warm Skin Moisture: Dry Skin Color: Normal Course - Re-evaluation Re-evalutation: 06/15/17 07:30 Patient reports he was already evaluated for his Achilles tenderness pain yesterday and was already treated for his right shoulder joint pain and states that he only needs referral information to the orthopedic doctor for these issues. 06/15/17 08:45 Patient repeatedly calling staff to room. Patient concerned that he has an amoeba infection, patient also concerned that he may have lewey bodies. Patient is using his cell phone to problems associated with his symptoms of malaise. Provider attempted to reassure patient that his laboratory findings are reassuring. Mental health consult placed. Patient denies any suicidal or homicidal ideation. Patient states he does have a history of bipolar and has not been on any medications recently to treat this. 06/15/17 09:41 Case management was at bedside to give patient outpatient resource information regarding shelters. 06/15/17 10:06 Mental health staff Madai evaluated patient and gave him outpatient resources. Patient medically cleared for discharge, Dr. Covarrubias is in agreement with this plan. - Vital Signs Vital signs: Temp Pulse Resp BP Pulse Ox 97.8 F 99 18 151/82 H 99 06/15/17 09:05 06/15/17 09:05 06/15/17 09:05 06/15/17 09:05 06/15/17 09:05 - Laboratory Result Diagrams: 06/15/17 07:45 06/15/17 07:45 Laboratory results interpreted by me: 06/15/17 06/15/17 07:45 08:52 Sodium 145.7 H Calcium 10.8 H Total Bilirubin 2.9 H Direct Bilirubin 0.7 H Total Protein 8.7 H Albumin 5.5 H Urine Ketones TRACE H Labs- Entire Visit 06/15/17 06/15/17 06/15/17 07:45 07:45 08:52 WBC 9.7 RBC 5.32 Hgb 16.9 Hct 48.1 MCV 90 MCH 31.8 MCHC 35.2 RDW 12.5 Plt Count 233 Seg Neutrophils % 63.7 Lymphocytes % 27.0 Monocytes % 8.1 Eosinophils % 0.5 Basophils % 0.7 Absolute Neutrophils 6.2 Absolute Lymphocytes 2.6 Absolute Monocytes 0.8 Absolute Eosinophils 0.0 Absolute Basophils 0.1 Sodium 145.7 H Potassium 4.0 Chloride 104 Carbon Dioxide 23 Anion Gap 19 BUN 10 Creatinine 0.89 Est GFR ( Amer) > 60 Est GFR (Non-Af Amer) > 60 Glucose 85 Calcium 10.8 H Total Bilirubin 2.9 H Direct Bilirubin 0.7 H Indirect Bilirubin Not Reportable Neonat Total Bilirubin Not Reportable AST 24 ALT 40 Alkaline Phosphatase 76 Total Protein 8.7 H Albumin 5.5 H Urine Color YELLOW Urine Appearance CLEAR Urine pH 6.0 Ur Specific [place] 1.008 Urine Protein NEGATIVE Urine Glucose (UA) NEGATIVE Urine Ketones TRACE H Urine Blood NEGATIVE Urine Nitrite NEGATIVE Urine Bilirubin NEGATIVE Urine Urobilinogen NEGATIVE Ur Leukocyte Esterase NEGATIVE Urine WBC (Auto) 1 Urine RBC (Auto) 1 U Hyaline Cast (Auto) 2 Urine Mucus (Auto) RARE Urine Ascorbic Acid NEGATIVE Discharge - Discharge Clinical Impression: Malaise, Hx of bipolar disorder, Homelessness, Vertigo Condition: Stable Disposition: HOME, SELF-CARE Instructions: Dizziness ([facility]), Malaise ([facility]) Additional Instructions: Return immediately for any new or worsening symptoms Followup with your primary care provider, call tomorrow to make a followup appointment Follow up with a mental health provider for management of your bipolar disorder Follow-up with a homeless senior care from the list of information that was provided Prescriptions: Meclizine HCl [Antivert 25 mg Tablet] 25 mg PO ASDIR PRN #12 tablet PRN Reason: Referrals: [facility] [Provider Group] - Follow up as needed [facility] [Provider Group] - Follow up as needed [facility] [Provider Group] - Follow up as needed
[2017-06-15 08:07] LABS: ABSOLUTE BASOPHILS # (AUTO) 0.1 10^3/uL (0.0-0.2); ABSOLUTE LYMPHOCYTES (AUTO) 2.6 10^3/uL (0.5-4.7); ABSOLUTE MONOCYTES (AUTO) 0.8 10^3/uL (0.1-1.4); ABSOLUTE NEUT (AUTO) 6.2 10^3/uL (1.7-8.2); BASOPHILS % (AUTO) 0.7 % (0-2); EOSINOPHILS % (AUTO) 0.5 % (0-6); HEMATOCRIT 48.1 % (37.9-51.0); HEMOGLOBIN 16.9 g/dL (13.5-17.0); HGB HCT DIFFERENCE 2.6; MEAN CORPUSCULAR HEMOGLOBIN 31.8 pg (27.0-33.4); MEAN CORPUSCULAR HGB CONC 35.2 g/dL (32.0-36.0); MEAN CORPUSCULAR VOLUME 90 fl (80-97); MONOCYTES % (AUTO) 8.1 % (3-13); RED BLOOD COUNT 5.32 10^6/uL (4.35-5.55); RED CELL DISTRIBUTION WIDTH 12.5 % (11.5-14.0); SEGMENTED NEUTROPHILS % (AUTO) 63.7 % (42-78); WHITE BLOOD COUNT 9.7 10^3/uL (4.0-10.5)
[2017-06-15 08:18] LABS: ALANINE AMINOTRANSFERASE 40 U/L (21-72); ALBUMIN 5.5 g/dL (3.5-5.0); ALKALINE PHOSPHATASE 76 U/L (38-126); ANION GAP 19 (5-19); ASPARTATE AMINO TRANSFERASE 24 U/L (17-59); BILIRUBIN,DIRECT 0.7 mg/dL (0.0-0.4); BILIRUBIN,TOTAL 2.9 mg/dL (0.2-1.3); BLOOD UREA NITROGEN 10 mg/dL (7-20); CALCIUM 10.8 mg/dL (8.4-10.2); CARBON DIOXIDE 23 mmol/L (22-30); CHLORIDE 104 mmol/L (98-107); CREATININE RESULT 0.89 mg/dL (0.52-1.25); GLUCOSE 85 mg/dL (75-110); SODIUM 145.7 mmol/L (137-145); TOTAL PROTEIN 8.7 g/dL (6.3-8.2)
[2017-06-15] MEDS ORDERED: IBUPROFEN 800 MG TABLET PO ONE (09:08)
[2017-06-15 09:11] LABS: APPEARANCE,URINE CLEAR; BILIRUBIN,URINE NEGATIVE (NEGATIVE); GLUCOSE, URINE NEGATIVE (NEGATIVE); KETONES,URINE TRACE mg/dL (NEGATIVE); LEUKOCYTE ESTERASE,URINE NEGATIVE (NEGATIVE); NITRITE,URINE NEGATIVE (NEGATIVE); PROTEIN,URINE NEGATIVE (NEGATIVE); URINE SPECIFIC GRAVITY 1.008; UROBILINOGEN,URINE NEGATIVE mg/dL (<2.0)
[2017-06-15 09:15] VITALS: BP 151/82
--- NOTE | 2017-06-15 12:20 | PSYCHOLOGICAL NOTE ---
Psych Note - Psych Note Psych Note: Patient is a 26-year-old male who has presented numerous days in a row with a myriad of benign complaints. Patient is referred for consultation due to his belligerent behavior. Patient denies any mental health history; however, her review of his EMR suggest prior visits for psychiatric treatment due to psychosis. Patient today complains to this clinician that he was only given one meal. Patient states he is homeless and no one wants to help. Patient states he came here yesterday and no one would feed him. Discussed with patient various resources. Patient states he cannot go to the homeless senior living because he no longer has a state ID. Patient reports he cannot go to the soup kitchen for food because he was kicked out. Patient was asked what happened and states "because they are bi." Patient denies that he is suicidal or homicidal. Patient reports his needs are a place to stay in food to eat. Patient states he needs help getting on his feet. D[facility] with [facility]. Provided this to patient and attempted to review various options within the guide. Patient demands food. Patient states he has no other complaints or needs at this time. Patient again [facility] that [facility] as well as a guide for local mental health providers. Did attempt to eliminate that mobile crisis can meet him anywhere in the community and identified integrated family services. Patient is alert and oriented. Mood is labile with congruent affect. Patient denies suicidal and homicidal ideations, intent, plan, means. Patient denies A/ VH; delusions not noted. Thought processes were goal oriented towards remaining in this department in focused on meeting his basic needs specifically food. Conversational speech was labile for rate, tone, and prosody. Intellectual abilities were estimated within lower average range. Attention and focus were fair. Insight, judgment, impulse control are poor. Unspecified bipolar disorder, per history Homelessness Patient is psychiatrically cleared for discharge. Patient is recommended to follow up with various social work nurse resources. Patient is recommended to reach out to integrated family services and restore his mental health treatment. Patient does denies suicidal and homicidal ideations. Patient identifies that his needs are social at this time. I consulted with Dr. Hannon in regards to the care and management of this patient. ED provider in agreement with disposition and recommendations.
--- NOTE | 2017-06-15 13:25 | EKG REPORT ---
SEVERITY:- ABNORMAL ECG - SINUS RHYTHM NONSPECIFIC T ABNORMALITIES, INFERIOR LEADS : Confirmed by: Celeste Carey MD 15-Jun-2017 13:24:17
== END 2017-06-15 10:16 | disposition home or self-care (01) ==
LOC: ER 06:56
DX: R42 Dizziness and giddiness (principal); R11.0 Nausea; R53.81 Other malaise; Z86.59 Personal history of other mental and behavioral disorders; M25.511 Pain in right shoulder; V00.131A Fall from skateboard, initial encounter; M25.571 Pain in right ankle and joints of right foot; G89.29 Other chronic pain; Z59.0 Homelessness
CPT/HCPCS: 93005; 99284; 96361; 96374; 36415; 85025; 80053; 81001; 93010; J2405; J7030

== ENCOUNTER 2018-02-12 13:40 | Emergency (ER) | payer SELFPAY ==
[2018-02-12 14:01] VITALS: BP 122/74
--- NOTE | 2018-02-12 14:32 | ER Document Report ---
ED Cardiac - General Chief Complaint: Chest Pain Stated Complaint: CHEST PAIN Notes: This is a 27-year-old male. States he is homeless. States that he wants his umbilical hernia checked. Has an occasional chest pain when he takes a deep breath. Does smoke every now and then. Denies any major shortness of breath at this time. Chest pain is not present at this time. Requesting work note to give some lifting restrictions. Patient presents with a large container of Food TRAVEL OUTSIDE OF THE [place] IN LAST 30 DAYS: No - HPI Patient complains to provider of: Chest pain, Other - Abdominal hernia - Related Data Allergies/Adverse Reactions: No Known Allergies Allergy (Verified 02/12/18 13:41) Past Medical History - General Information source: Patient - Social History Smoking Status: Current Every Day Smoker Chew tobacco use (# tins/day): No Frequency of alcohol use: None Drug Abuse: None Lives with: Homeless Family History: Hypertension. denies: Arthritis, CAD, COPD, CVA, Hyperlipidemia , Malignancy, Thyroid Disfunction Patient has suicidal ideation: No Patient has homicidal ideation: No Renal/ Medical History: Denies: Hx Peritoneal Dialysis Musculoskeltal Medical History: Reports Hx Musculoskeletal Deformity - Rhabdomyolysis, Reports Hx Musculoskeletal Trauma Psychiatric Medical History: Reports: Hx Attention Deficit Hyperactivity Disorder, Hx Bipolar Disorder Past Surgical History: Reports: Hx Tonsillectomy - Immunizations Immunizations up to date: Yes Hx Diphtheria, Pertussis, Tetanus Vaccination: No Review of Systems - Review of Systems Constitutional: No symptoms reported EENT: No symptoms reported Cardiovascular: Chest pain. denies: Palpitations, Heart racing, Orthopnea Respiratory: No symptoms reported Gastrointestinal: Abdomen distended, Abdominal pain. denies: Diarrhea, Nausea, Vomiting Genitourinary: No symptoms reported Male Genitourinary: No symptoms reported Musculoskeletal: No symptoms reported Skin: No symptoms reported Hematologic/Lymphatic: No symptoms reported Neurological/Psychological: No symptoms reported Physical Exam - Vital signs Vitals: Temp Pulse Resp BP Pulse Ox 98.3 F 72 20 122/74 98 02/12/18 14:01 02/12/18 14:01 02/12/18 14:01 02/12/18 14:01 02/12/18 14:01 Interpretation: Normal - General General appearance: Appears well, Alert - HEENT Head: Normocephalic, Atraumatic Eyes: Normal Pupils: PERRL - Respiratory Respiratory status: No respiratory distress Chest status: Nontender Breath sounds: Normal Chest palpation: Normal - Cardiovascular Rhythm: Regular Heart sounds: Normal auscultation Murmur: No - Abdominal Inspection: Normal Distension: No distension Bowel sounds: Normal Tenderness: Nontender, Other - Patient has a small nonincarcerated, non- strangulated abdominal defect just superior to the umbilicus. There is no significant protrusion of bowel content. No guarding or rebound. Organomegaly: No organomegaly - Back Back: Normal, Nontender - Extremities General upper extremity: Normal inspection, Nontender, Normal color, Normal ROM , Normal temperature General lower extremity: Normal inspection, Nontender, Normal color, Normal ROM , Normal temperature, Normal weight bearing. No: Rebekah's sign - Neurological Neuro grossly intact: Yes Cognition: Normal Orientation: AAOx4 [place] Coma Scale Eye Opening: Spontaneous [place] Coma Scale Verbal: Oriented [place] Coma Scale Motor: Obeys Commands [place] Coma Scale Total: 15 Speech: Normal Motor strength normal: LUE, RUE, LLE, RLE Sensory: Normal - Psychological Associated symptoms: Normal affect, Normal mood - Skin Skin Temperature: Warm Skin Moisture: Dry Skin Color: Normal Course - Re-evaluation Re-evalutation: 02/12/18 16:33 Patient refused chest x-ray. EKG was normal. Gave follow-up information with regards to surgery. Gave patient an abdominal binder no work note. Patient was discharged in stable condition. - Vital Signs Vital signs: Temp Pulse Resp BP Pulse Ox 98.3 F 72 18 122/74 98 02/12/18 14:01 02/12/18 14:01 02/12/18 14:28 02/12/18 14:01 02/12/18 14:01 Discharge - Discharge Clinical Impression: Umbilical hernia Qualifiers: Obstruction and gangrene presence: without obstruction or gangrene Qualified Code(s): K42.9 - Umbilical hernia without obstruction or gangrene Chest pain Qualifiers: Chest pain type: other chest pain Qualified Code(s): R07.89 - Other chest pain Condition: Good Disposition: HOME, SELF-CARE Instructions: Chest Pain of Unclear Cause ([facility]), Umbilical Hernia ([facility]) Forms: Special Work Note Referrals: BELEM LAY MD [ACTIVE STAFF] - Follow up as needed
--- NOTE | 2018-02-12 16:52 | EKG REPORT ---
SEVERITY:- BORDERLINE ECG - SINUS RHYTHM NONSPECIFIC T INVERSIONS- INFERIOR LEADS : Confirmed by: Gareth Grubbs MD 12-Feb-2018 16:52:10
== END 2018-02-12 14:41 | disposition home or self-care (01) ==
LOC: ER 13:40
DX: K42.9 Umbilical hernia without obstruction or gangrene (principal); R07.1 Chest pain on breathing; F17.200 Nicotine dependence, unspecified, uncomplicated; Z59.0 Homelessness
CPT/HCPCS: 93005; 93010; 99285

== ENCOUNTER 2018-03-01 16:47 | Emergency (ER) | payer SELFPAY ==
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
[2018-03-01 17:40] VITALS: BP 130/79
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
== END 2018-03-01 19:01 | disposition home or self-care (01) ==
LOC: ER 16:47
DX: S49.91XA Unspecified injury of right shoulder and upper arm, initial encounter (principal); V18.4XXA Pedal cycle driver injured in noncollision transport accident in traffic accident, initial encounter; Z59.0 Homelessness
CPT/HCPCS: 99283

== ENCOUNTER 2018-04-12 02:42 | Emergency (ER) | payer SELFPAY ==
[2018-04-12 02:46] VITALS: BP 120/65
[2018-04-12] MEDS ORDERED: LIDOCAINE 1% INJ-PF (10 MG/ML) 30 ML SDV INJ ONE (03:52)
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
== END 2018-04-12 06:06 | disposition home or self-care (01) ==
LOC: ER 02:42
DX: S61.210A Laceration without foreign body of right index finger without damage to nail, initial encounter (principal); M54.5 Low back pain; M25.511 Pain in right shoulder; V18.4XXA Pedal cycle driver injured in noncollision transport accident in traffic accident, initial encounter; M24.411 Recurrent dislocation, right shoulder; F17.200 Nicotine dependence, unspecified, uncomplicated; Z59.0 Homelessness
CPT/HCPCS: 99285; 73130; 72110; 73030; 12001; J3490

== ENCOUNTER 2018-11-24 13:17 | Emergency (ER) | payer SELFPAY ==
[2018-11-24] MEDS ORDERED: NORMAL SALINE 1000 ML 1,000 ML IV ONE (14:18)
[2018-11-24 15:44] LABS: APPEARANCE,URINE CLEAR; BILIRUBIN,URINE NEGATIVE (NEGATIVE); COLOR,URINE STRAW; GLUCOSE, URINE NEGATIVE (NEGATIVE); KETONES,URINE NEGATIVE (NEGATIVE); LEUKOCYTE ESTERASE,URINE NEGATIVE (NEGATIVE); NITRITE,URINE NEGATIVE (NEGATIVE); PROTEIN,URINE NEGATIVE (NEGATIVE); URINE SPECIFIC GRAVITY 1.006; UROBILINOGEN,URINE NEGATIVE mg/dL (<2.0)
[2018-11-24 15:50] LABS: A TYPE INFLUENZA AG NEGATIVE (NEGATIVE); B INFLUENZA AG NEGATIVE (NEGATIVE)
[2018-11-24 16:11] LABS: ABSOLUTE BASOPHILS # (AUTO) 0.1 10^3/uL (0.0-0.2); ABSOLUTE EOSINOPHILS # (AUTO) 0.1 10^3/uL (0.0-0.6); ABSOLUTE LYMPHOCYTES (AUTO) 1.6 10^3/uL (0.5-4.7); ABSOLUTE MONOCYTES (AUTO) 1.3 10^3/uL (0.1-1.4); ABSOLUTE NEUT (AUTO) 4.2 10^3/uL (1.7-8.2); BASOPHILS % (AUTO) 1.1 % (0-2); EOSINOPHILS % (AUTO) 1.1 % (0-6); HEMOGLOBIN 14.3 g/dL (13.5-17.0); LYMPHOCYTES % (AUTO) 22.3 % (13-45); MEAN CORPUSCULAR HEMOGLOBIN 31.5 pg (27.0-33.4); MEAN CORPUSCULAR HGB CONC 34.8 g/dL (32.0-36.0); MEAN CORPUSCULAR VOLUME 91 fl (80-97); MONOCYTES % (AUTO) 17.4 % (3-13); PLATELET COUNT 192 10^3/uL (150-450); RED BLOOD COUNT 4.52 10^6/uL (4.35-5.55); RED CELL DISTRIBUTION WIDTH 12.4 % (11.5-14.0); SEGMENTED NEUTROPHILS % (AUTO) 58.1 % (42-78); TOTAL CELLS COUNTED % (AUTO) 100 %; WHITE BLOOD COUNT 7.2 10^3/uL (4.0-10.5)
[2018-11-24 16:25] LABS: ALANINE AMINOTRANSFERASE 32 U/L (21-72); ALBUMIN 4.2 g/dL (3.5-5.0); ALKALINE PHOSPHATASE 85 U/L (38-126); ANION GAP 9 (5-19); ASPARTATE AMINO TRANSFERASE 26 U/L (17-59); BILIRUBIN,DIRECT 0.1 mg/dL (0.0-0.4); BILIRUBIN,TOTAL 0.6 mg/dL (0.2-1.3); BLOOD UREA NITROGEN 11 mg/dL (7-20); CALCIUM 9.6 mg/dL (8.4-10.2); CARBON DIOXIDE 28 mmol/L (22-30); CHLORIDE 101 mmol/L (98-107); CREATINE KINASE 53 U/L (55-170); GLUCOSE 98 mg/dL (75-110); POTASSIUM 4.4 mmol/L (3.6-5.0); SODIUM 138.3 mmol/L (137-145); TOTAL PROTEIN 7.2 g/dL (6.3-8.2)
--- NOTE | 2018-11-24 16:38 | ER Document Report ---
ED General - General Chief Complaint: Flu Symptoms Stated Complaint: DIZZY,NAUSEA Time Seen by Provider: 11/24/18 14:06 Primary Care Provider: [facility] [Outside] - Follow up as needed Notes: Patient is a 28-year-old male who presents to the emergency department via EMS with complaints of cough, congestion, body aches and fatigue. Patient reports he has been feeling ill for the past 3-4 days. He states that he is homeless. He denies any significant past medical history. He does not take any daily medi cations. He has not received a flu vaccine. He is unsure if he has had fevers however he reports he has felt chills. He denies any nausea, vomiting or diarrhea. TRAVEL OUTSIDE OF THE [place] IN LAST 30 DAYS: No - Related Data Allergies/Adverse Reactions: No Known Allergies Allergy (Verified 11/24/18 13:20) Past Medical History - General Information source: Patient - Social History Smoking Status: Current Every Day Smoker Frequency of alcohol use: None Drug Abuse: None Family History: Reviewed & Not Pertinent, Hypertension Patient has suicidal ideation: No Patient has homicidal ideation: No Renal/ Medical History: Denies: Hx Peritoneal Dialysis Musculoskeletal Medical History: Reports Hx Musculoskeletal Deformity, Reports Hx Musculoskeletal Trauma Psychiatric Medical History: Reports: Hx Attention Deficit Hyperactivity Disorder, Hx Bipolar Disorder Past Surgical History: Reports: Hx Tonsillectomy - Immunizations Immunizations up to date: Yes Hx Diphtheria, Pertussis, Tetanus Vaccination: No Review of Systems - Review of Systems Constitutional: Chills EENT: Nose congestion Cardiovascular: denies: Chest pain Respiratory: Cough. denies: Short of breath Gastrointestinal: denies: Abdominal pain, Diarrhea, Vomiting, Constipation Genitourinary: No symptoms reported Male Genitourinary: No symptoms reported Musculoskeletal: Other - Body aches Skin: No symptoms reported Hematologic/Lymphatic: No symptoms reported Neurological/Psychological: No symptoms reported Physical Exam - Vital signs Vitals: Temp Pulse Resp BP Pulse Ox 98.7 F 106 H 18 137/70 H 98 11/24/18 13:46 11/24/18 13:46 11/24/18 13:46 11/24/18 13:46 11/24/18 13:46 - Notes Notes: PHYSICAL EXAMINATION: GENERAL: Well-appearing, well-nourished and in no acute distress. HEAD: Atraumatic, normocephalic. EYES: Pupils equal round and reactive to light, extraocular movements intact, sclera anicteric, conjunctiva are normal. ENT: Nares patent, oropharynx clear without exudates. Moist mucous membranes. NECK: Normal range of motion, supple without lymphadenopathy LUNGS: Breath sounds clear to auscultation bilaterally and equal. No wheezes rales or rhonchi. HEART: Regular rate and rhythm without murmurs ABDOMEN: Soft, nontender, nondistended abdomen. No guarding, no rebound. No masses appreciated. Musculoskeletal: Normal range of motion, no pitting or edema. No cyanosis. NEUROLOGICAL: Cranial nerves grossly intact. Normal speech, normal gait. Normal sensory, motor exams PSYCH: Normal mood, normal affect. SKIN: Warm, Dry, normal turgor, no rashes or lesions noted. Course - Re-evaluation Re-evalutation: Labs as recorded are unremarkable. Physical examination is reassuring. Labs were discussed with patient. Patient will be discharged home in stable condition. Patient given [facility] so that patient has a place to follow-up for primary care. At the time patient being discharged patient through items at the nurse. Patient screaming stating that we did not do anything for him. Reassured patient that all testing that was ordered today was negative and he essentially has a clean bill of health other than a viral illness. - Vital Signs Vital signs: Temp Pulse Resp BP Pulse Ox 98.7 F 84 16 126/70 H 100 11/24/18 13:46 11/24/18 17:32 11/24/18 17:32 11/24/18 17:32 11/24/18 17:32 - Laboratory Result Diagrams: 11/24/18 15:30 11/24/18 15:30 Laboratory results interpreted by me: 11/24/18 11/24/18 11/24/18 14:47 15:30 15:30 Monocytes % 17.4 H Creatine Kinase 53 L Urine Ascorbic Acid 40 H Discharge - Discharge Clinical Impression: Flu-like symptoms Condition: Stable Disposition: HOME, SELF-CARE Additional Instructions: Viral Syndrome The physician has diagnosed a viral infection. Viruses not only cause "colds," but can cause many different symptoms including generalized aching, fever, headache, cough, diarrhea, nausea, vomiting, and fatigue. The treatment, for the most part, is simply relief of symptoms. This means that antibiotics are usually not given. Rest, fluids, pain medications and, occasionally, medication for the specific symptoms that are most bothersome will be prescribed. Use good handwashing to avoid passing the virus to others. Shared toys should be cleaned with disinfectant. Clean the toilets, sinks, and counter surfaces in bathrooms. Launder clothing in hot water. Contact the physician if you develop any new or unusual symptoms such as severe headache, stiff neck, high fever, chest pain, productive cough, or shortness of breath. You should be rechecked if you don't see marked improvement within seven to 10 days. Referrals: [facility] [Outside] - Follow up as needed
[2018-11-24 17:33] VITALS: BP 126/70
== END 2018-11-24 17:33 | disposition home or self-care (01) ==
LOC: ER 13:17
DX: J11.1 Influenza due to unidentified influenza virus with other respiratory manifestations (principal); R42 Dizziness and giddiness; R11.0 Nausea; R05 Cough; R09.81 Nasal congestion; M79.10 Myalgia, unspecified site; R53.83 Other fatigue; F17.200 Nicotine dependence, unspecified, uncomplicated; I10 Essential (primary) hypertension
CPT/HCPCS: 99283; 96360; 36415; 82550; 85025; 80053; 81001; 87804; J7030

== ENCOUNTER 2018-11-29 13:27 | Emergency (ER) | payer SELFPAY ==
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
[2018-11-29 14:51] LABS: ABSOLUTE BASOPHILS # (AUTO) 0.1 10^3/uL (0.0-0.2); ABSOLUTE EOSINOPHILS # (AUTO) 0.1 10^3/uL (0.0-0.6); ABSOLUTE LYMPHOCYTES (AUTO) 2.7 10^3/uL (0.5-4.7); ABSOLUTE MONOCYTES (AUTO) 0.8 10^3/uL (0.1-1.4); ABSOLUTE NEUT (AUTO) 6.8 10^3/uL (1.7-8.2); BASOPHILS % (AUTO) 0.7 % (0-2); EOSINOPHILS % (AUTO) 0.7 % (0-6); HEMATOCRIT 37.4 % (37.9-51.0); HEMOGLOBIN 13.3 g/dL (13.5-17.0); LYMPHOCYTES % (AUTO) 25.7 % (13-45); MEAN CORPUSCULAR HEMOGLOBIN 31.9 pg (27.0-33.4); MEAN CORPUSCULAR HGB CONC 35.6 g/dL (32.0-36.0); MEAN CORPUSCULAR VOLUME 90 fl (80-97); PLATELET COUNT 227 10^3/uL (150-450); RED BLOOD COUNT 4.17 10^6/uL (4.35-5.55); RED CELL DISTRIBUTION WIDTH 12.4 % (11.5-14.0); SEGMENTED NEUTROPHILS % (AUTO) 64.9 % (42-78); TOTAL CELLS COUNTED % (AUTO) 100 %; WHITE BLOOD COUNT 10.4 10^3/uL (4.0-10.5)
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
--- NOTE | 2018-11-29 15:17 | RADIOLOGY REPORT (SQ) ---
EXAM DESCRIPTION: CHEST SINGLE VIEW COMPLETED DATE/TIME: 11/29/2018 3:04 pm REASON FOR STUDY: cough COMPARISON: AP chest 11/27/2012 EXAM PARAMETERS: NUMBER OF VIEWS: One view. TECHNIQUE: Single frontal radiographic view of the chest acquired. RADIATION DOSE: NA LIMITATIONS: None. FINDINGS: LUNGS AND PLEURA: No opacities, masses or pneumothorax. No pleural effusion. MEDIASTINUM AND HILAR STRUCTURES: No masses. Contour normal. HEART AND VASCULAR STRUCTURES: Heart normal in size. Normal vasculature. BONES: No acute findings. HARDWARE: None in the chest. OTHER: No other significant finding. IMPRESSION: NO ACUTE RADIOGRAPHIC FINDING IN THE CHEST. TECHNICAL DOCUMENTATION: JOB ID: [id number] [employer]- All Rights Reserved Reading location - IP/workstation name: [email or web address]
[2018-11-29 15:18] LABS: ALANINE AMINOTRANSFERASE 36 U/L (21-72); ALBUMIN 3.9 g/dL (3.5-5.0); ALKALINE PHOSPHATASE 84 U/L (38-126); ANION GAP 7 (5-19); ASPARTATE AMINO TRANSFERASE 29 U/L (17-59); BILIRUBIN,DIRECT 0.2 mg/dL (0.0-0.4); BILIRUBIN,TOTAL 0.4 mg/dL (0.2-1.3); BLOOD UREA NITROGEN 9 mg/dL (7-20); CALCIUM 9.3 mg/dL (8.4-10.2); CARBON DIOXIDE 29 mmol/L (22-30); CHLORIDE 104 mmol/L (98-107); GLUCOSE 109 mg/dL (75-110); LIPASE 89.4 U/L (23-300); TOTAL PROTEIN 6.6 g/dL (6.3-8.2)
[2018-11-29 15:50] LABS: AMORPHOUS SEDIMENT,URINE TRACE /HPF; APPEARANCE,URINE CLOUDY; BILIRUBIN,URINE NEGATIVE (NEGATIVE); COLOR,URINE YELLOW; GLUCOSE, URINE NEGATIVE (NEGATIVE); KETONES,URINE NEGATIVE (NEGATIVE); LEUKOCYTE ESTERASE,URINE NEGATIVE (NEGATIVE); NITRITE,URINE NEGATIVE (NEGATIVE); PROTEIN,URINE NEGATIVE (NEGATIVE); URINE SPECIFIC GRAVITY 1.012; UROBILINOGEN,URINE NEGATIVE mg/dL (<2.0)
[2018-11-29 16:02] LABS: URINE AMPHETAMINES SCREEN NEGATIVE; URINE BARBITURATES SCREEN NEGATIVE; URINE BENZODIAZEPINES SCREEN NEGATIVE; URINE COCAINE SCREEN NEGATIVE; URINE MARIJUANA (THC) SCREEN NEGATIVE; URINE METHADONE SCREEN NEGATIVE; URINE PHENCYCLIDINE SCREEN NEGATIVE
[2018-11-29 16:32] VITALS: BP 152/77
== END 2018-11-29 16:38 | disposition home or self-care (01) ==
LOC: ER 13:27
DX: J06.9 Acute upper respiratory infection, unspecified (principal); R07.9 Chest pain, unspecified; Z59.0 Homelessness
CPT/HCPCS: 36415; 71045; 80053; 80307; 81001; 83690; 85025; 99283

== ENCOUNTER 2019-04-07 17:37 | Emergency (ER) | payer SELFPAY ==
[2019-04-07 17:43] VITALS: BP 144/75
--- NOTE | 2019-04-07 17:56 | ER Document Report ---
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 Mother called cafeteria worker due to his safety. She states he has not been to the doctor in a long time and is not been taking his medications. She states he is bipolar and schizophrenic. She states he is not functioning properly at this time and he is homeless. Patient denies any thoughts of suicide or homicide. Mobile cafeteria worker stated that mother had some concerns about his behavior. I have greeted and performed a rapid initial assessment of this patient. A comprehensive ED assessment and evaluation of the patient, analysis of test results and completion of medical decision making process will be conducted by an additional ED providers. Dictation of this chart was performed using voice recognition software; therefore, there may be some unintended grammatical errors. TRAVEL OUTSIDE OF THE [place] IN LAST 30 DAYS: No - Related Data Allergies/Adverse Reactions: No Known Allergies Allergy (Verified 04/07/19 17:40) Past Medical History Renal/ Medical History: Denies: Hx Peritoneal Dialysis Musculoskeltal Medical History: Reports Hx Musculoskeletal Deformity, Reports Hx Musculoskeletal Trauma Psychiatric Medical History: Reports: Hx Attention Deficit Hyperactivity Disorder, Hx Bipolar Disorder Past Surgical History: Reports: Hx Tonsillectomy - Immunizations Immunizations up to date: Yes Hx Diphtheria, Pertussis, Tetanus Vaccination: No History of Influenza Vaccine for 05/2017 - 10/2017 Season: No Physical Exam - Vital signs Vitals: Temp Pulse Resp BP Pulse Ox 98 F 84 18 144/75 H 96 04/07/19 17:42 04/07/19 17:42 04/07/19 17:42 04/07/19 17:42 04/07/19 17:42 Course - Vital Signs Vital signs: Temp Pulse Resp BP Pulse Ox 98 F 84 18 144/75 H 96 04/07/19 17:42 04/07/19 17:42 04/07/19 17:42 04/07/19 17:42 04/07/19 17:42
--- NOTE | 2019-04-07 20:18 | ER Document Report ---
ED General - General Chief Complaint: Psych Problem Stated Complaint: PSYCH Time Seen by Provider: 04/07/19 17:47 Mode of Arrival: Ambulatory Notes: Is a 28-year-old male brought in by [employer] for evaluation. Apparently patient stated he wanted some help. When I went in to evaluate the patient he states that he has a rash and wants it checked but then when I went to evaluate the rash he change his mind and says he did not want the rash checked. Asked if he had mental health history he denied. I asked if he had any homicidal ideation or suicidal thoughts or hallucinations he said no. At that point he became angr y and said "you know what I am just leaving I do not like the way you are asking these questions". Patient was escorted off the premises by security. Before patient left I did walk with him out the door of the hospital and advised him that if he changes his mind that we were here. Patient would not let me evaluate him. Refused to answer anymore questions. Physical exam was limited to evaluation of his exposed skin on the arms which did reveal a rash which appeared to be more like poison mary. Before the patient could be reassessed or properly evaluated he eloped. TRAVEL OUTSIDE OF THE [place] IN LAST 30 DAYS: No - Related Data Allergies/Adverse Reactions: No Known Allergies Allergy (Verified 04/07/19 17:40) Past Medical History - General Information source: Law Enforcement - Mobile crisis - Social History Smoking Status: Former Smoker Chew tobacco use (# tins/day): No Frequency of alcohol use: None Drug Abuse: None Family History: Reviewed & Not Pertinent, Hypertension Patient has suicidal ideation: No Patient has homicidal ideation: Yes Renal/ Medical History: Denies: Hx Peritoneal Dialysis Musculoskeletal Medical History: Reports Hx Musculoskeletal Deformity, Reports Hx Musculoskeletal Trauma Psychiatric Medical History: Reports: Hx Attention Deficit Hyperactivity Disorder, Hx Bipolar Disorder Past Surgical History: Reports: Hx Tonsillectomy - Immunizations Immunizations up to date: Yes Hx Diphtheria, Pertussis, Tetanus Vaccination: No Physical Exam - Vital signs Vitals: Temp Pulse Resp BP Pulse Ox 98 F 84 18 144/75 H 96 04/07/19 17:42 04/07/19 17:42 04/07/19 17:42 04/07/19 17:42 04/07/19 17:42 Course - Vital Signs Vital signs: Temp Pulse Resp BP Pulse Ox 98 F 84 18 144/75 H 96 04/07/19 17:42 04/07/19 17:42 04/07/19 17:42 04/07/19 17:42 04/07/19 17:42 Discharge - Discharge Clinical Impression: Rash and nonspecific skin eruption Condition: Good Disposition: HOME, SELF-CARE
== END 2019-04-07 20:05 | disposition home or self-care (01) ==
LOC: ER 17:37
DX: R21 Rash and other nonspecific skin eruption (principal); Z87.891 Personal history of nicotine dependence; Z53.29 Procedure and treatment not carried out because of patient's decision for other reasons
CPT/HCPCS: 99284